=== PATIENT | male | born 1945 | race Caucasian/White ===

== ENCOUNTER 2017-01-19 12:39 | Inpatient (IN) | payer OTHER ==
--- NOTE | ~2017-01-19 | HP ---
History And Physical [place] [id number] [facility] [place]. [address] NAME: MICAELA RETANA : 49 STATUS : ADM IN [facility]#: [id number] AGE: 71 ADM/REG DATE : 01/19/17 MR#: [id number] REPORT SERV DATE: 01/19/17 DICTATED BY: ANGELICA PELLETIER DATE: 01/19/17 REPORT STATUS : Draft TRANSCRIBED BY: MODL DATE: 01/19/17 DATE OF ADMISSION: 01/19/2017 CHIEF COMPLAINT: The patient brought into the emergency room unresponsive. HISTORY OF PRESENT ILLNESS: The patient is a 71-year-old male with past medical history of smoking, quit approximately 8 years ago; COPD and very advanced stages per family; who presents after having difficulty throughout the night. He is chronic O2 dependent approximately 4 L. Today, he was essentially just unresponsive. Has been using his albuterol treatments. He has not had many admissions over the last few years, but had an acute sudden decompensation today. Symptoms were severe and the patient was unresponsive, had been constant, and progressive. The patient denied any chest pain or radiating symptoms. The patient has been on BiPAP and has started to wake up. He only reports the shortness of breath and some constipation. When reviewing with the patient, the patient has had cool extremities in the lower legs, which is also new and mottling of the skin. There are no worsening symptoms, but relieved and improved by BiPAP. The patient does not use CPAP or BiPAP at home. Symptoms have been slowly getting better after BiPAP trial in emergency room. The patient was noted to be significantly acidotic, initially unresponsive. REVIEW OF SYSTEMS: GENERAL: Positive for mild fevers, but no chills. EYES: No pain or visual changes reported. ENT: No reported congestion or ear or sinus drainage. NEURO: Essentially comatose, but now improving. SKIN: Does have rash on knees and cool extremities. RESPIRATORY: Noted for shortness of breath, dyspnea on exertion. CV: Tachycardic. Fast heart rate. No chest pain. GI: No nausea, vomiting. Positive for constipation. : No dysuria or hematuria. MUSCULOSKELETAL: Denies any myalgias, arthralgias. ENDO: Increased fatigue, but no polyuria. HEME: No bleeding or bruising reported. IMMUNOLOGIC: No rhinorrhea. PSYCH: Notable anxiety for acute situation, and did have initial comatose-type state, but is improved enough to answer simple questions. The patient adamantly reports "do not intubate me" as he tries to take off the mask to report. He will keep CPAP, but does not want however intubation. He wants this expressed and family has also expressed this. PAST MEDICAL HISTORY: Noted for COPD, 4 L O2 dependent; hypertension; hyperlipidemia; BPH; PTSD with anxiety. SURGERIES: He has multiple abdominal surgeries of appendectomy, cholecystectomy, a hernia repair; rotator cuff of shoulder. ALLERGIES: SULFA. History And Physical [address] [place]. [address] NAME: MICAELA RETANA : 49 STATUS : ADM IN [facility]#: [id number] AGE: 71 ADM/REG DATE : 01/19/17 MR#: [id number] REPORT SERV DATE: 01/19/17 DICTATED BY: ANGELICA PELLETIER DATE: 01/19/17 REPORT STATUS : Draft TRANSCRIBED BY: HETAL DATE: 01/19/17 SOCIAL HISTORY: Quit smoking approximately 8 years ago. On disability. at bedside. Has a history of asbestos exposure per records. No alcohol or illicits. A [place] . FAMILY HISTORY: No coronary artery disease. Grandfather had severe emphysema. Brother with kidney stones. MEDICATIONS: Albuterol, Xanax, aspirin, Symbicort, Wellbutrin, Flonase, HCTZ, Advil, Claritin, Zocor, Spiriva, vitamin D, and stool softeners. PHYSICAL EXAMINATION: VITAL SIGNS: The patient's blood pressure 158/78; pulse 112; respirations 39, down to 24; temperature 99.9; O2 saturations 95% on BiPAP 15 L. GENERAL: Elderly. Was in severe respiratory distress. More oriented now after BiPAP. EYES: No scleral icterus. EOMI. ENT: Very dry mucous membranes. Tongue midline. RESPIRATORY: Decreased bibasilar lung badillo, on BiPAP. CV: Tachycardic. Does have cool extremities. CHEST: Equal chest expansion. EXTREMITIES: Lower extremities with mottling of skin. GI: Soft, nontender, nondistended. Bowel sounds positive. : Deferred. MUSCULOSKELETAL: Does move all extremities, but mottling on knees and cool lower extremities. SKIN: Cool and dry on lower extremities. LYMPH: No cervical or supraclavicular lymphadenopathy. HEME: No bleeding. NEURO: Now awake, answering appropriately to questions. Initially was essentially comatose. PSYCH: Anxious. EKG: Sinus tachycardia, 114, QTc of 402. ABG most recent: 7.2 pH, pCO2 of 94, PO2 142, bicarb 35.5. Initial presenting, pH 7.17, pCO2 of 119, PO2 of 385, bicarb of 41.9. WBC count 18.7, H and H 15 and 46.6, platelets 269. Portable chest: Hyperexpanded emphysematous changes. BMP: Sodium 137, potassium 4.7, bicarb 38, chloride 89, BUN and creatinine 28 and 2.04, glucose 165, calcium 9.4, magnesium 2.2. Troponin negative. Lactate 1.6. BNP 142.1. ASSESSMENT AND PLAN: 1. Acute chronic obstructive pulmonary disease exacerbation. 2. Acute on chronic hypoxic and hypercapnic respiratory failure with initial presentation of comatose. 3. Acute kidney injury. 4. Systemic inflammatory response syndrome. 5. Primary respiratory acidosis secondary to metabolic alkalosis. 6. Hypertension. 7. History of polycythemia, likely secondary to respiratory issue. History And Physical [address] [address] NAME: MICAELA RETANA : [birth year] STATUS : ADM IN [facility]#: [id number] AGE: 71 ADM/REG DATE : 01/19/17 MR#: [id number] REPORT SERV DATE: 01/19/17 DICTATED BY: ANGELICA PELLETIER DATE: 01/19/17 REPORT STATUS : Draft TRANSCRIBED BY: MODL DATE: 01/19/17 8. Constipation. 9. Acute encephalopathy with coma features reported on admission. 10.Peripheral disease. PLAN: 1. For acute COPD exacerbation, steroids BiPAP with improvement in response. Levaquin is started. The patient is 4 L dependent at home. We will continue DuoNebs. Pulmonary consultation, additionally Palliative called in consultation due to severity of disease. The patient fortunately has not required many inpatient admissions in times past. We will see, this patient does have significant anxiety, about this. 2. Acute on chronic hypoxic-hypercapnic respiratory failure. Mental status improved, on BiPAP. The patient wakes up specifically to say "do not intubate me." He is DNR/DNI and this is reflected on chart and confirmed with family at bedside. We will continue on 23-hour BiPAP and then, reassess for continuation as a p.r.n. basis. We will have Pulmonary evaluation. The patient likely will benefit from either CPAP or BiPAP if also for comfort at home, but extremely guarded prognosis at this time. 3. SHIRA. IV fluids. Check urine lytes. Clinically volume depleted. Reassess after IV fluid hydration. 4. SIRS. Treat above. Check antibiotics of Levaquin and check cultures. 5. Primary respiratory acidosis with secondary metabolic alkalosis secondary to above, on BiPAP. Continue to monitor serial treatments. 6. Hypertension. Hold thiazide and monitor. 7. Polycythemia history, likely secondary to underlying COPD. Currently within normal limits. 8. Constipation. 9. Acute encephalopathy with initial coma presentation. Clinically improving after removal of CO2 with BiPAP. We will continue to monitor neuro status. 10.Peripheral disease. Check ABIs. The patient refuses any surgical intervention. He is adamant about this, but we will go ahead and check ABIs, IV fluids, and improve oxygenation and subsequently hopefully improve vascular perfusion in lower extremities. The patient is DNR/DNI per his form, completed on form and also confirmed with family at bedside. DDN/MODL Angelica Pelletier MD / [id number] CC: MD Chi aP M.D.
--- NOTE | ~2017-01-19 | DS ---
Discharge Summary [facility] [address] [place]. [address] NAME: MICAELA RETANA : 49 STATUS : DIS IN PAT#: [id number] AGE: 71 ADM/REG DATE : 01/19/17 MR#: [id number] REPORT SERV DATE: 01/24/17 DICTATED BY: VAMSI PADILLA DATE: 01/23/17 REPORT STATUS : Draft TRANSCRIBED BY: HETAL DATE: 01/23/17 ADMISSION DATE: 01/19/2017 DISCHARGE DATE: 01/23/2017 DISCHARGE DIAGNOSES: 1. Acute on chronic respiratory failure with hypercapnia. 2. Chronic obstructive pulmonary disease exacerbation. 3. Advanced chronic obstructive pulmonary disease. 4. Acute kidney injury on chronic kidney disease. 5. Hypertension. DISCHARGE CONDITION: Poor. CONSULTATION: 1. Palliative Care, Dr. Carlos. 2. Systems Test Technician, Dr. Whitley Savage. PROCEDURES: None. HISTORY OF PRESENT ILLNESS: For detailed HPI, please make reference to Dr. Jose Manuel's dictation on 01/19/2017. In brief, this is a 71-year-old male with a medical history of ongoing tobacco abuse, advanced COPD, and chronic respiratory failure, who presented to the hospital after he was found unresponsive at home. It was noted by family that the patient's respiratory status has been progressively declining over the period of months, but the patient had refused to seek medical care. On the day of presentation, the patient's noted that the patient became progressively unresponsive and decided to call EMS. On arrival to the ER, the patient was placed on BiPAP and became more responsive. ABG was done in the ER, that shows the patient's pH was 7.17, PaO2 of 119. The patient was admitted to the Hospitalist Service for further evaluation of acute on chronic respiratory failure secondary to COPD exacerbation. HOSPITAL COURSE: Acute on chronic hypercapnic respiratory failure. When the patient became more alert, the patient verbalized that he does not want BiPAP treatment. Despite extensive counseling, the patient expressed his wish that he does not want to be placed on BiPAP. Palliative Care team was consulted. The patient expressed his wish that he wanted to be made DNR. The art objects supervisor was also consulted. Recommended the patient to continue IV prednisone and levofloxacin, Symbicort, and DuoNeb. The patient's respiratory status continues to get worse during the course of this admission as the patient remained noncompliant with BiPAP treatment. The patient expressed that he wants to be discharged home with hospice. The patient is a . DC was contacted to arrange home hospice. At the time of discharge, the patient was approved for home hospice. The patient's spouse was at the bedside throughout the course of this admission and also verbalized that the patient's wishes will be to go home and continue home hospice and does not want any further aggressive medical intervention. The patient was subsequently discharged home today with home hospice. Discharge Summary [place] [address] [place]. [address] NAME: MICAELA RETANA : 49 STATUS : DIS IN PAT#: [id number] AGE: 71 ADM/REG DATE : 01/19/17 MR#: [id number] REPORT SERV DATE: 01/24/17 DICTATED BY: VAMSI PADILLA DATE: 01/23/17 REPORT STATUS : Draft TRANSCRIBED BY: HETAL DATE: 01/23/17 LEE/HETAL Vamsi Padilla MD / [id number]
--- NOTE | ~2017-01-19 | CN ---
Consultation Report [facility] [address] [place]. [address] NAME: MICAELA NUNO : 49 STATUS : ADM IN PAT#: [id number] AGE: 71 ADM/REG DATE : 01/19/17 MR#: [id number] REPORT SERV DATE: 01/21/17 DICTATED BY: WHITLEY SAMUEL DATE: 01/20/17 REPORT STATUS : Draft TRANSCRIBED BY: MODL DATE: 01/20/17 PULMONARY CONSULTATION DATE OF CONSULTATION: 01/20/2017 REASON FOR CONSULTATION: Pulmonary consulted for assistance with treatment for COPD exacerbation and management of BiPAP. HISTORY OF PRESENT ILLNESS: Mr. Nuno is a 71-year-old white male, former smoker, with COPD/chronic bronchitis, obstructive sleep apnea-intolerant to CPAP secondary to post traumatic stress disorder and chronic hypoxia, on 2 to 3 L of supplemental oxygen per minute 24 hours per day who was admitted with hypercapnic respiratory failure and CO2 narcosis with associated loss of consciousness. Pulmonary was consulted for assistance with treatment including management of BiPAP. The patient reports that he has been feeling short of breath with decreased exercise tolerance over the past three months. He describes marked worsening in his shortness of breath, as well as wheezing, malaise and cough productive of yellow sputum for the past five days. He was found unresponsive by family, so he was brought here to [facility] and subsequently admitted. He states that he sees outpatient manager training, Dr. Abhijeet Presley, and has been compliant with Spiriva 18 mcg once daily and Symbicort 160/4.5 mcg one puff twice daily as prescribed. He has been using nebulized albuterol and albuterol via metered-dose inhaler frequently over the past several weeks due to his symptoms as described. He denies recent admission for COPD exacerbation. As noted above, he has a history of obstructive sleep apnea that was diagnosed several years ago. He states he received CPAP equipment, but was unable to comply due to inability to tolerate the mask. He states he cannot wear the mask due to significant anxiety related to post-traumatic stress disorder after his time serving in [place]. After admission here, he has been treated with BiPAP, IV steroids, bronchodilators, supplemental oxygen, and Levaquin. He feels significantly better. PAST MEDICAL HISTORY: 1. COPD and chronic bronchitis. 2. Obstructive sleep apnea-intolerant to CPAP. 3. Chronic hypoxia-on supplemental oxygen at a flow rate of 2 to 3 L/minute 24 hours per day. 4. History of smoking/tobacco addiction. 5. Hypertension. 6. Benign prostatic hypertrophy. 7. Anxiety. 8. Posttraumatic stress disorder. 9. Hyperlipidemia. 10.Appendectomy. 11.Inguinal hernia repair. 12.Rotator cuff surgery. Consultation Report [address] [place]. [address] NAME: MICAELA NUNO : 49 STATUS : ADM IN [facility]#: [id number] AGE: 71 ADM/REG DATE : 01/19/17 MR#: [id number] REPORT SERV DATE: 01/21/17 DICTATED BY: WHITLEY SAMUEL DATE: 01/20/17 REPORT STATUS : Draft TRANSCRIBED BY: HETAL DATE: 01/20/17 FAMILY HISTORY: He denies family history of pulmonary diseases. SOCIAL HISTORY: He smoked one to two packs of cigarettes per day for more than 20 years and quit 8 to 10 years ago. 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 He has a history of asbestos exposure. He is unsure about [place] exposure. He is currently unemployed/on disability. He is , but his ex- is here with him today. He has three children. MEDICATIONS: Outpatient and inpatient medications were reviewed and are as documented in the record. As an outpatient, he was on Spiriva 18 mcg once daily, Symbicort 160/4.5 mcg one puff twice daily, and rescue albuterol. ALLERGIES: SULFA. REVIEW OF SYSTEMS: A 14-point system review was conducted and is remarkable for the symptoms as described in the history of present illness. He does have ongoing hypersomnolence. He denies GERD symptoms or nasal symptoms. PHYSICAL EXAMINATION: VITAL SIGNS: Temperature 97.8 degrees, heart rate 96, blood pressure 120/76, respiratory rate 20, oxygen saturation 97% on supplemental oxygen at a flow rate of 14 L/minute via high flow nasal cannula. GENERAL: Obese white male. Alert, oriented, no apparent distress. Wearing BiPAP. HEENT: Normocephalic. Atraumatic. There is no scleral icterus. The conjunctivae are clear. NECK: Supple. No lymphadenopathy is noted. LUNGS: Good effort. There are diminished breath sounds throughout. There are no crackles, wheezes, or rhonchi. HEART: Regular rate and rhythm. No ectopy is noted. ABDOMEN: Soft. Nontender. Nondistended. There are normal bowel sounds in all four quadrants. BILATERAL EXTREMITIES: Both feet are dusky and cool. There is no clubbing or edema. NEUROLOGIC: Limited exam. It is found to be nonfocal. SKIN: No rashes are noted. LABORATORY RESULTS: Labs were reviewed and are as documented record. Notable labs include a white blood cell count of 12.8. Arterial blood gas. 1. A pH 7.20, pCO2 of 94, and pO2 of 142 on BiPAP 20/8 with FiO2 60%. 2. ABG #2 with pH 7.22, pCO2 of 99, pO2 of 147 on supplemental oxygen at 100% via high- flow nasal cannula. 3. ABGs #3; pH 7.21, pCO2 of 88, pO2 of 61 on 70% O2 via high-flow nasal cannula. Consultation Report [address] [place]. [address] NAME: MICAELA NUNO : 49 STATUS : ADM IN [facility]#: [id number] AGE: 71 ADM/REG DATE : 01/19/17 MR#: [id number] REPORT SERV DATE: 01/21/17 DICTATED BY: WHITLEY SAMUEL DATE: 01/20/17 REPORT STATUS : Draft TRANSCRIBED BY: HETAL DATE: 01/20/17 IMAGING: The chest x-ray done today revealed left basilar atelectasis, but was otherwise clear. ASSESSMENT AND PLAN: Mr. Nuno is a 71-year-old white male, former smoker, with chronic obstructive pulmonary disease exacerbation and acute hypercapnic respiratory failure with resultant loss of consciousness. He also has bronchitis, atelectasis, and hypoxia beyond his baseline. He has improved significantly with treatment with BiPAP, IV Levaquin, systemic steroids, bronchodilators, and supplemental oxygen. RECOMMEND: 1. Continue Levaquin for seven days. 2. Check sputum, Gram stain and culture. 3. Continue systemic steroids. 4. Add nebulized budesonide-1 mg twice daily. 5. Continue BiPAP as tolerated. Recommend he use BiPAP overnight plus as needed during the day while an inpatient. He does refuse outpatient BiPAP. I would change his BiPAP settings to 20/5 and recheck his arterial blood gas. 6. Continue bronchodilators. He currently is on DuoNeb as well as Dulera and Spiriva. 7. Recommend improving pulmonary toilet-EzPAP will be added to his regimen. 8. Wean supplemental oxygen to his usual baseline flow rate of 2 to 3 L/minute as tolerated. 9. As noted, he has a history of smoking/tobacco addiction. [facility], he had a CT scan of the chest done 11/2015. He would need annual lung cancer screening CT scans of the chest as an outpatient if he has not had one done. The patient should be discharged with Spiriva 18 mcg once daily and Symbicort 160/4.5 mcg two puffs twice daily. After discharge, he can follow up with his usual manager training, Dr. Abhijeet Presley. Thank you very much for this consultation. KEIRA/HETAL Whitley Samuel M.D. / [id number] CC: MD Chi Oliva M.D.
[~2017-01-19 12:39] MED LIST: ASMANEX INH; FLOMAX4 PO; FLONASE NAS; FORADIL INH; HCTZ25B PO; PROSCAR5 PO; PROVENTSOL INH; SPIRIVA INH; T300 PO; WELL100 PO; ZOCOR40 PO
[2017-01-19 13:11] LABS: ALLENS TEST Pos; BE (BASE EXCESS) 8.1 MEQ/L (0 +/- 2.5); BIPAP 18/8 cm.H2O; CARBOXYHEMOGLOBIN 2.3 % (0-3); HCO3 (ACTUAL BICARBONATE) 41.9 MEQ/L (23-27); HEMOBLOGIN CONTENT 15.2 G/DL (14-18); INSTRUMENT SERIAL # 8087; METHEMOGLOBIN 0.4 % (0-3); O2 CONTENT 21.7 VOL% (18-24); OPERATOR ID 13715; PCO2 (CO2 TENSION) 119 MMHG (35-45); PO2 (O2 TENSION) 385 MMHG (79-93); SAMPLE Arterial; pH 7.17 (7.37-7.43)
[2017-01-19 13:17] LABS: BASOPHILS 0.2 %; BASOPHILS ABSOLUTE 0.04 10/3/uL (0.0-0.16); EOSINOPHILS 0.1 %; EOSINOPHILS ABSOLUTE 0.01 10/3/uL (0.0-0.53); HEMATOCRIT 46.6 % (40.0-51.0); IMMATURE GRANULOCYTES 0.4 %; IMMATURE GRANULOCYTES ABSOLUTE 0.08 10/3/uL (0.0-0.11); LYMPHOCYTES 15.3 %; LYMPHOCYTES ABSOLUTE 2.85 10/3/uL (0.67-4.30); MEAN CORPUS HGB CONC 32.2 g/dL (32.0-36.0); MEAN CORPUSCULAR HEMOGLOB 31.2 pg (26.0-34.0); MEAN PLATELET VOLUME 9.6 fL (9.2-13.0); MONOCYTES 12.3 %; MONOCYTES ABSOLUTE 2.29 10/3/uL (0.21-1.20); NEUTROPHILS 71.7 %; NEUTROPHILS ABSOLUTE 13.39 10/3/uL (2.02-8.40); PLATELET COUNT 269 10/3/uL (150-400); RBC DISTRIBUTION WIDTH 14.1 % (12.0-16.0); RED CELL COUNT 4.81 10/6/uL (4.7-6.1)
[2017-01-19 13:23] LABS: INTERNATIONAL NORMAL RATI 1.1 UNITS (-); PARTIAL THROMBO TIME 26.9 SEC (22.5-37.2); PROTIME (NOT ORD) 14.4 SEC (12.0-14.5)
[2017-01-19 13:25] LABS: ER CBC TAT 0 Hrs 15 Mins; MANUAL DIFF NO %; MEAN CORPUSCULAR VOLUME 96.9 fL (80-100); WHITE BLOOD CELLS 18.7 10/3/uL (4.5-10.5)
[2017-01-19 13:34] LABS: BUN (BLOOD UREA NITROGEN) 28 MG/DL (6-23); CALCIUM, SERUM 9.4 MG/DL (8.5-10.4); CHEST PAIN PROFILE TAT 0 Hrs 24 Mins; CHLORIDE, SERUM 89 MMOL/L (96-112); CO2 (CARBON DIOXIDE) 38 MMOL/L (24-34); CREATININE 2.04 MG/DL (0.70-1.30); GFR AFRICAN AMERICAN 37 ML/MIN (>=60); GFR NON AFRICAN AMERICAN 32 ML/MIN (>=60); GLUCOSE, SERUM 165 MG/DL (60-99); POTASSIUM, SERUM 4.7 MMOL/L (3.5-5.3); SODIUM, SERUM 137 MMOL/L (135-148); TROPONIN I <0.02 NG/ML (<0.05)
[2017-01-19] MEDS ORDERED: XANAX1 MG PO (13:35)
[2017-01-19] MEDS ORDERED: X5 PO (13:35)
[2017-01-19] MEDS ORDERED: ZOCOR80 MG PO (13:36)
[2017-01-19] MEDS ORDERED: ALBUTEROL0.083 % INH (13:36)
[2017-01-19] MEDS ORDERED: SYMBICORT 160/41 INH INH (13:37)
[2017-01-19] MEDS ORDERED: SPIRIVA INH (13:37)
[2017-01-19] MEDS ORDERED: VITAMIN D PO (13:38)
[2017-01-19] MEDS ORDERED: WELLSR150 PO (13:46)
[2017-01-19] MEDS ORDERED: ASAB PO (13:46)
[2017-01-19] MEDS ORDERED: ZOCOR40 PO (13:47)
[2017-01-19] MEDS ORDERED: CLARIT10 PO (13:48)
[2017-01-19] MEDS ORDERED: HYDROCHLOROT25 MG PO (13:49)
[2017-01-19] MEDS ORDERED: ADVIL PO (13:50)
[2017-01-19] MEDS ORDERED: STOOL SOFTENER PO (13:51)
[2017-01-19] MEDS ORDERED: FLONASE NAS (13:52)
[2017-01-19 14:02] LABS: ALLENS TEST Pos; BE (BASE EXCESS) 3.7 MEQ/L (0 +/- 2.5); BIPAP 20/8 cm.H2O; CARBOXYHEMOGLOBIN 2.2 % (0-3); HCO3 (ACTUAL BICARBONATE) 35.5 MEQ/L (23-27); HEMOBLOGIN CONTENT 15.1 G/DL (14-18); INSTRUMENT SERIAL # 8087; METHEMOGLOBIN 0.3 % (0-3); O2 CONTENT 20.6 VOL% (18-24); OPERATOR ID 13715; PCO2 (CO2 TENSION) 94 MMHG (35-45); PO2 (O2 TENSION) 142 MMHG (79-93); SAMPLE Arterial
[2017-01-20 04:03] LABS: BE (BASE EXCESS) 8.1 MEQ/L (0 +/- 2.5); CARBOXYHEMOGLOBIN 1.4 % (0-3); DEVICE HFNC; HCO3 (ACTUAL BICARBONATE) 39.7 MEQ/L (23-27); HEMOBLOGIN CONTENT 13.8 G/DL (14-18); INSTRUMENT SERIAL # 8087; METHEMOGLOBIN 0.4 % (0-3); O2 CONTENT 19.1 VOL% (18-24); PCO2 (CO2 TENSION) 99 MMHG (35-45); PO2 (O2 TENSION) 147 MMHG (79-93); SAMPLE Arterial; pH 7.22 (7.37-7.43)
[2017-01-20 06:10] LABS: BASOPHILS 0.1 %; BASOPHILS ABSOLUTE 0.01 10/3/uL (0.0-0.16); EOSINOPHILS 0 %; HEMOGLOBIN 13.5 g/dL (13.6-17.8); IMMATURE GRANULOCYTES 0.5 %; IMMATURE GRANULOCYTES ABSOLUTE 0.06 10/3/uL (0.0-0.11); LYMPHOCYTES 6.1 %; LYMPHOCYTES ABSOLUTE 0.78 10/3/uL (0.67-4.30); MEAN CORPUS HGB CONC 32.1 g/dL (32.0-36.0); MEAN CORPUSCULAR HEMOGLOB 30.5 pg (26.0-34.0); MEAN PLATELET VOLUME 9.7 fL (9.2-13.0); MONOCYTES 7.4 %; MONOCYTES ABSOLUTE 0.94 10/3/uL (0.21-1.20); NEUTROPHILS 85.9 %; NEUTROPHILS ABSOLUTE 10.98 10/3/uL (2.02-8.40); PLATELET COUNT 241 10/3/uL (150-400); RBC DISTRIBUTION WIDTH 13.8 % (12.0-16.0); RED CELL COUNT 4.42 10/6/uL (4.7-6.1); WHITE BLOOD CELLS 12.8 10/3/uL (4.5-10.5)
[2017-01-20 06:15] LABS: MANUAL DIFF NO %
[2017-01-20 06:16] LABS: CALCIUM, SERUM 9.1 MG/DL (8.5-10.4); CHLORIDE, SERUM 91 MMOL/L (96-112); CO2 (CARBON DIOXIDE) 35 MMOL/L (24-34); POTASSIUM, SERUM 4.6 MMOL/L (3.5-5.3); SODIUM, SERUM 134 MMOL/L (135-148)
[2017-01-20 06:19] LABS: BUN (BLOOD UREA NITROGEN) 53 MG/DL (6-23); CREATININE 2.98 MG/DL (0.70-1.30); GFR AFRICAN AMERICAN 24 ML/MIN (>=60); GFR NON AFRICAN AMERICAN 20 ML/MIN (>=60); GLUCOSE, SERUM 202 MG/DL (60-99)
[2017-01-20 10:57] LABS: BE (BASE EXCESS) 3.5 MEQ/L (0 +/- 2.5); CARBOXYHEMOGLOBIN 0.8 % (0-3); HCO3 (ACTUAL BICARBONATE) 34.6 MEQ/L (23-27); INSTRUMENT SERIAL # 8083; METHEMOGLOBIN 0.4 % (0-3); PCO2 (CO2 TENSION) 88 MMHG (35-45); PO2 (O2 TENSION) 61 MMHG (79-93); pH 7.21 (7.37-7.43)
[2017-01-20 10:58] LABS: ALLENS TEST Pos; DEVICE HFNC; HEMOBLOGIN CONTENT 14.6 G/DL (14-18); O2 CONTENT 18.2 VOL% (18-24); SAMPLE Arterial
[2017-01-20 22:35] LABS: WBC (NOT ORDERED) (RFLEX) 0 (0-5)
[2017-01-20 22:45] LABS: ASCORBIC ACID (UR NOT ORDER) NEG (NEG); BILIRUBIN, URINE NEGATIVE (NEG); KETONE, URINE NEGATIVE (NEG); LEUKOCYTE ESTERASE(NOT OR NEG (NEG)
[2017-01-21 04:38] LABS: ALLENS TEST Pos; BE (BASE EXCESS) 5.3 MEQ/L (0 +/- 2.5); CARBOXYHEMOGLOBIN 0.3 % (0-3); DEVICE HFNC; INSTRUMENT SERIAL # 35151; METHEMOGLOBIN 0.7 % (0-3); PCO2 (CO2 TENSION) 90 MMHG (35-45); PO2 (O2 TENSION) 77 MMHG (79-93); SAMPLE Arterial; pH 7.22 (7.37-7.43)
[2017-01-21 08:04] LABS: BASOPHILS 0.1 %; BASOPHILS ABSOLUTE 0.01 10/3/uL (0.0-0.16); EOSINOPHILS 0 %; HEMATOCRIT 38.3 % (40.0-51.0); HEMOGLOBIN 12.4 g/dL (13.6-17.8); IMMATURE GRANULOCYTES 0.8 %; LYMPHOCYTES 6.2 %; LYMPHOCYTES ABSOLUTE 0.74 10/3/uL (0.67-4.30); MEAN CORPUS HGB CONC 32.4 g/dL (32.0-36.0); MEAN CORPUSCULAR HEMOGLOB 30.5 pg (26.0-34.0); MEAN CORPUSCULAR VOLUME 94.1 fL (80-100); MEAN PLATELET VOLUME 9.5 fL (9.2-13.0); MONOCYTES 7.6 %; MONOCYTES ABSOLUTE 0.91 10/3/uL (0.21-1.20); NEUTROPHILS 85.3 %; NEUTROPHILS ABSOLUTE 10.25 10/3/uL (2.02-8.40); PLATELET COUNT 228 10/3/uL (150-400); RBC DISTRIBUTION WIDTH 14.1 % (12.0-16.0); RED CELL COUNT 4.07 10/6/uL (4.7-6.1)
[2017-01-21 08:05] LABS: MANUAL DIFF NO %
[2017-01-21 08:25] LABS: BUN (BLOOD UREA NITROGEN) 96 MG/DL (6-23); CALCIUM, SERUM 8.4 MG/DL (8.5-10.4); CHLORIDE, SERUM 94 MMOL/L (96-112); CO2 (CARBON DIOXIDE) 31 MMOL/L (24-34); CREATININE 3.69 MG/DL (0.70-1.30); GFR AFRICAN AMERICAN 18 ML/MIN (>=60); GFR NON AFRICAN AMERICAN 16 ML/MIN (>=60); GLUCOSE, SERUM 212 MG/DL (60-99); POTASSIUM, SERUM 4.9 MMOL/L (3.5-5.3); SODIUM, SERUM 137 MMOL/L (135-148)
[2017-01-21 13:37] LABS: BASOPHILS 0.1 %; BASOPHILS ABSOLUTE 0.01 10/3/uL (0.0-0.16); EOSINOPHILS 0 %; HEMATOCRIT 38.8 % (40.0-51.0); HEMOGLOBIN 12.4 g/dL (13.6-17.8); IMMATURE GRANULOCYTES 1.1 %; IMMATURE GRANULOCYTES ABSOLUTE 0.14 10/3/uL (0.0-0.11); LYMPHOCYTES 6.2 %; LYMPHOCYTES ABSOLUTE 0.76 10/3/uL (0.67-4.30); MEAN CORPUSCULAR VOLUME 93.9 fL (80-100); MEAN PLATELET VOLUME 9.8 fL (9.2-13.0); MONOCYTES 8.3 %; MONOCYTES ABSOLUTE 1.02 10/3/uL (0.21-1.20); NEUTROPHILS 84.3 %; NEUTROPHILS ABSOLUTE 10.42 10/3/uL (2.02-8.40); PLATELET COUNT 251 10/3/uL (150-400); RBC DISTRIBUTION WIDTH 14.1 % (12.0-16.0); RED CELL COUNT 4.13 10/6/uL (4.7-6.1); WHITE BLOOD CELLS 12.4 10/3/uL (4.5-10.5)
[2017-01-21 13:41] LABS: MANUAL DIFF NO %
[2017-01-21 13:56] LABS: BUN (BLOOD UREA NITROGEN) 99 MG/DL (6-23); CALCIUM, SERUM 8.7 MG/DL (8.5-10.4); CHLORIDE, SERUM 93 MMOL/L (96-112); CO2 (CARBON DIOXIDE) 32 MMOL/L (24-34); CREATININE 3.78 MG/DL (0.70-1.30); GFR AFRICAN AMERICAN 18 ML/MIN (>=60); GFR NON AFRICAN AMERICAN 15 ML/MIN (>=60); GLUCOSE, SERUM 231 MG/DL (60-99); POTASSIUM, SERUM 4.4 MMOL/L (3.5-5.3); SODIUM, SERUM 135 MMOL/L (135-148); TROPONIN I <0.02 NG/ML (<0.05)
[2017-01-21 13:57] LABS: ALBUMIN 2.8 G/DL (3.5-5.0)
[2017-01-23] MEDS ORDERED: H1 PO (11:00)
[2017-01-23] MEDS ORDERED: NORCO1 TAB PO (11:01)
[2017-01-23] MEDS ORDERED: P20 PO (11:02)
[2017-01-23] MEDS ORDERED: T PO (11:03)
[2017-01-23] MEDS ORDERED: BISR PR (11:04)
== END 2017-01-23 15:06 | disposition hospice, home (50) | DRG 189 ==
LOC: ER 12:39 → 6NO 15:35
PROVIDERS: Emergency Medicine; Hospitalist; Internal Medicine; Student in an Organized Health Care Education/Training Program
PROC: 5A09357 Assistance with Respiratory Ventilation, Less than 24 Consecutive Hours, Continuous Positive Airway Pressure (ICD-10-PCS; principal; 2017-01-19)
DX: J96.21 Acute and chronic respiratory failure with hypoxia (principal); R40.20 Unspecified coma; N17.9 Acute kidney failure, unspecified; G93.40 Encephalopathy, unspecified; R65.10 Systemic inflammatory response syndrome (SIRS) of non-infectious origin without acute organ dysfunction; E87.4 Mixed disorder of acid-base balance; J44.1 Chronic obstructive pulmonary disease with (acute) exacerbation; D75.1 Secondary polycythemia; N18.3 Chronic kidney disease, stage 3 (moderate); I12.9 Hypertensive chronic kidney disease with stage 1 through stage 4 chronic kidney disease, or unspecified chronic kidney disease; J96.22 Acute and chronic respiratory failure with hypercapnia; Z51.5 Encounter for palliative care; Z66 Do not resuscitate; G47.33 Obstructive sleep apnea (adult) (pediatric); F43.10 Post-traumatic stress disorder, unspecified; N40.0 Benign prostatic hyperplasia without lower urinary tract symptoms; G47.10 Hypersomnia, unspecified; E78.5 Hyperlipidemia, unspecified; I73.9 Peripheral vascular disease, unspecified; K59.00 Constipation, unspecified; Z77.090 Contact with and (suspected) exposure to asbestos; Z57.2 Occupational exposure to dust; Z88.2 Allergy status to sulfonamides; Z87.891 Personal history of nicotine dependence; Z99.81 Dependence on supplemental oxygen; Z90.49 Acquired absence of other specified parts of digestive tract
CPT/HCPCS: 36600; 71010; 76775; 80048; 80069; 81001; 82570; 82805; 83605; 83735; 83880; 83935; 84300; 84484; 85025; 85610; 85730; 87040; 87070; 87205; 87449; 93005; 93925; 94640; 94644; 94660; 96365; 99291; A9270-GY; J1956; J2405; J2920